=== PATIENT | male | born 1955 | race Caucasian/White ===

== ENCOUNTER 2016-11-29 07:15 | Day surgery (SDC) | payer OTHER ==
[~2016-11-29] VITALS: Ht 175.3 cm; Wt 90.7 kg
[~2016-11-29 07:15] MED LIST: 0.9% Sodium Chloride 1,000 ML IV SCH; Sodium Chloride LOK Flush 10 mL Syringe IV PRN; fentaNYL-PF 50 mCg/mL 2 mL Inj IVPUSH PRN
[2016-11-29 07:40] VITALS: BP 137/102; PULSE 77; RESP 14; O2SAT 97
[2016-11-29 08:20] VITALS: BP 121/75; PULSE 72; RESP 12; O2SAT 96
[2016-11-29 08:30] VITALS: BP 119/78; PULSE 69; O2SAT 98
[2016-11-29 08:40] VITALS: BP 117/78; PULSE 62; RESP 12; O2SAT 97
--- NOTE | 2016-11-29 08:42 | ENDO ---
[address] [address] ENDOSCOPY PROCEDURE PATIENT: APOLLO GARCIA : 1955 MR#: [id number] ADMIT: 11/29/2016 JOB ID: [id number] DATE OF SERVICE: 11/29/2016 PROCEDURE PERFORMED: Colonoscopy. INDICATIONS: The patient with a personal history of colon polyps. ASA CLASSIFICATION: The patient's ASA classification is I. MALLAMPATI SCORE: Mallampati score was 1. INSTRUMENT USED: PCF-H190L. PREPARATION QUALITY: Good. PROCEDURE DETAILS: After informed consent was obtained, the patient was brought into the GI suite, where he was placed on oxygen via nasal cannula and monitored with continuous pulse oximeter, telemetry, and blood pressure monitoring. A time-out was performed. Then, he was placed in the left lateral decubitus position and medications were administered for sedation. Digital rectal exam with palpation of the prostate was performed which was unremarkable. The colonoscope was then inserted into the rectum and advanced under direct visualization to the cecum, which was identified by the presence of the ileocecal valve and appendiceal orifice. Once the cecum was reached, the colonoscope was withdrawn back into the rectum, as the mucosa and lumen were examined. In the rectum, retroflexion was performed. Following retroflexion, remaining air in the rectum was suctioned, and procedure was completed. FINDINGS: 1. In the transverse colon, there was a diminutive polyp that was removed with a cold biopsy forceps. 2. In the descending colon, there was an approximately 3-4 mm sessile polyp that was removed with a cold snare. 3. Scattered diverticula were seen throughout the sigmoid colon. 4. Retroflexed views in the rectum revealed small to moderate-sized internal hemorrhoids. IMPRESSION: 1. Transverse colon polyp. 2. Descending colon polyp. 3. Sigmoid diverticulosis. 4. Internal hemorrhoids. RECOMMENDATION: 1. Fiber-rich diet. 2. Repeat colonoscopy in five years. COMPLICATIONS: None. ESTIMATED BLOOD LOSS: Less than 5 mL.
[2016-11-29 08:50] VITALS: BP 118/89; PULSE 68; RESP 12; O2SAT 100
--- NOTE | 2016-11-30 16:17 | PATH ---
SURGICAL PATHOLOGY Attending Physician:Radha Perez CASE STATUS: Signed Out PATIENT NAME: APOLLO GARCIA PID: [id number] : 1955 DATE COLLECTED:11/29/2016 21:44 SPECIMEN: 1: Colon, Biopsy 2: Colon, Biopsy CLINICAL HISTORY: 1). TRANSVERSE POLYP X1 2). DESCENDING POLYP X1 FINAL DIAGNOSIS: 1. Transverse Colon Polyp x1: Sessile serrated adenoma. 2. Descending Colon Polyp x1: Tubular adenoma. ICD10: D12.3 D12.4 GROSS DESCRIPTION: The specimen is received in two formalin filled containers labeled with the patient's name. 1). The specimen is sublabeled "transverse polyp" and consists of a 0.3 x 0.3 x 0.2 CM portion of tissue which is entirely submitted in cassette 1A. 2). The specimen is sublabeled "descending polyp" and consists of a 0.2 x 0.2 x 0.1 CM portion of tissue which is entirely submitted in cassette 2A. 11/29/2016 DAC MICRO DESCRIPTION: Please see diagnosis. ICD-9 CODES: CPT CODES: 1: 45719 2: 38124 Electronically Signed Out Maria Guadalupe Fung MD [facility] [address], [place] [address] Technical component performed at [facility], [facility] [address], [place], [address]
== END 2016-11-29 23:59 | disposition home or self-care (01) ==
LOC: END 07:15
PROVIDERS: ATTEND Internal Medicine Gastroenterology
DX: Z12.11 Encounter for screening for malignant neoplasm of colon (principal); D12.3 Benign neoplasm of transverse colon; D12.4 Benign neoplasm of descending colon; K57.30 Diverticulosis of large intestine without perforation or abscess without bleeding; K64.8 Other hemorrhoids; Z86.010 Personal history of colon polyps; E78.5 Hyperlipidemia, unspecified; G43.B0 Ophthalmoplegic migraine, not intractable; R74.8 Abnormal levels of other serum enzymes
CPT/HCPCS: 45380; 45385; G0500; J2250; J3010; J7030